=== PATIENT | female | born 1970 | race Caucasian/White ===

== ENCOUNTER 2025-06-28 11:11 | Outpatient (CLI) | payer MEDICAID ==
[~2025-06-28 11:11] MED LIST: GADOTERATE MEGLUMINE 7.5 MMOL/15 ML VIAL IV ONE
--- NOTE | 2025-06-28 16:00 | RADIOLOGY REPORT ---
EXAM: MR MRI UPPER EXTREMITY RIGHT INDICATION: RIGHT SHOULDER PAIN TECHNIQUE: Multiplanar, multisequence MR images of the right shoulder were obtained in the absence of gadolinium contrast material. COMPARISON: None FINDINGS: [CORACOACROMIAL ARCH]: Mild degenerative change of the acromioclavicular joint. Intact coracoclavicular ligaments. Intact coracoacromial ligaments. No subacromial/subdeltoid bursal fluid. [ROTATOR CUFF]: No full-thickness tear. Question trace amount of partial articular sided fraying of the anterior fibers of the infraspinatus with slight edema extending along the superior fibers of the infraspinatus muscle belly. [BICEPS TENDON]: Intermediate signal intensity and thickening of the intra- articular segment long head of the biceps tendon. Correlate for tendinosis and may be a source of internal impingement. [LABRUM]: Question small amount of tearing of the biceps labral anchor complex (7-9). [CARTILAGE]: No measurable cartilage defect. [GLENOHUMERAL JOINT]: No joint effusion. No intra-articular body. [BONES]: No acute fracture, osseous contusion, or aggressive focal osseous lesion. T2 hyperintense bubbly lesion of the proximal humerus which may represent an enchondroma. [MUSCLES]: Normal muscle bulk of the rotator cuff muscles. small amount of feathery muscle edema of the superior aspect of the infraspinatus. [NEUROVASCULAR/LYMPH NODES]: Normal. [OTHER]: None. IMPRESSION: 1. Intermediate signal intensity and thickening of the intra-articular segment long head of the biceps tendon. Correlate for tendinosis and may be a source of internal impingement. 2. Question small amount of tearing of the biceps labral anchor complex 3. T2 hyperintense bubbly lesion of the proximal humerus which may represent an enchondroma. 4. Question trace amount of partial articular sided fraying of the anterior fibers of the infraspinatus with slight edema extending along the superior fibers of the infraspinatus muscle belly.
== END 2025-06-28 23:59 | disposition home or self-care (01) ==
LOC: MRI02 11:11
PROVIDERS: ATTEND Nurse Practitioner
DX: M19.011 Primary osteoarthritis, right shoulder (principal)
CPT/HCPCS: 73221; 73222; A9575